=== PATIENT | male | born 1955 | race Caucasian/White ===

== ENCOUNTER 2017-08-01 02:20 | Inpatient (IN) | payer OTHER ==
[~2017-08-01] VITALS: Ht 170.2 cm; Wt 79.7 kg
[~2017-08-01 02:20] MED LIST: ALLO100T30 PO; AMLO10TA4 PO; ASPI-496 PO; ATOR10TA9 PO; LOSA1TAB22 PO; METO-93 PO
[2017-08-01] MEDS ORDERED: ONDANSETRON ODT 4 MG ONE (02:54)
[2017-08-01] MEDS ORDERED: ASPIRIN 81 MG TABLET CHEW ONE (02:54)
[2017-08-01] MEDS ORDERED: ONDANSETRON 2MG/ML, 2ML IVPush ONE (03:00)
[2017-08-01] MEDS ORDERED: ASPIRIN 81 MG TABLET CHEW PO ONE (03:00)
[2017-08-01 03:03] LABS: HEMATOCRIT 46.6 % (39.2-51.8); HEMOGLOBIN 16.1 g/dL (13.7-18.0); WHITE BLOOD COUNT 9.8 x10^3/uL (3.4-10)
[2017-08-01 03:16] LABS: ASPARTATE AMINO TRANSFERASE 33 U/L (15-37); BLOOD UREA NITROGEN 15 mg/dL (7-18)
[2017-08-01 03:20] LABS: IS PT STATUS REG ER OR PRE ER? YES
[2017-08-01] MEDS ORDERED: SODIUM CHLORIDE 0.9% 1,000 ML IV ONE ×2 (03:54→09:40)
[2017-08-01] MEDS ORDERED: MORPHINE SULFATE 4 MG/ML, 1ML ONE (03:57)
[2017-08-01] MEDS ORDERED: NITROGLYCERIN OINT 2%, 1GM TP ONE (04:00)
[2017-08-01] MEDS ORDERED: MORPHINE SULFATE 4 MG/ML, 1ML IVPush PRN ×2 (04:00)
[2017-08-01] MEDS ORDERED: SODIUM CHLORIDE 0.9% 1,000ML IVBOLUS ONE (04:00)
[2017-08-01] MEDS ORDERED: ONDANSETRON 2MG/ML, 2ML IVPush PRN ×2 (04:00→08:00)
[2017-08-01 05:10] VITALS: BP 169/90
[2017-08-01] MEDS ORDERED: ACETAMINOPHEN 325 MG TABLET PO PRN (08:00)
[2017-08-01 08:18] VITALS: BP 150/88
[2017-08-01] MEDS: LOSARTAN 50MG TABLET PO SCH (08:26)
[2017-08-01] MEDS: HYDROCHLOROTHIAZIDE 25 MG TABLET PO SCH (08:26)
[2017-08-01 08:46] LABS: IS PT STATUS REG ER OR PRE ER? NO
[2017-08-01] MEDS ORDERED: METOPROLOL SUCCINATE 50 MG TAB.ER.24H PO SCH (09:00)
[2017-08-01] MEDS: METOPROLOL SUCCINATE 25 MG TAB.ER.24H PO SCH (09:30)
[2017-08-01] MEDS ORDERED: MIDAZOLAM 1 MG/ML, 5ML ONE (14:26)
[2017-08-01] MEDS ORDERED: FENTANYL PF 100 MCG/2ML ONE (14:26)
[2017-08-01] MEDS ORDERED: BIVALIRUDIN 250 MG ONE (14:27)
[2017-08-01] MEDS ORDERED: LIDOCAINE 2%, 20ML ONE (14:27)
[2017-08-01] MEDS ORDERED: HEPARIN 1,000 UNITS/ML, 10ML ONE (14:27)
[2017-08-01] MEDS ORDERED: VERAPAMIL 2.5 MG/ML, 2ML ONE (14:27)
[2017-08-01] MEDS ORDERED: PRASUGREL 10 MG TABLET ONE (15:27)
[2017-08-01] MEDS ORDERED: BIVALIRUDIN 250 MG in DEXTROSE 5% 50 ML IV SCH (15:29)
[2017-08-01] MEDS ORDERED: SODIUM CHLORIDE 0.9% 1,000 ML IV SCH (15:29)
[2017-08-01 16:55] VITALS: BP 166/98
[2017-08-01 19:05] VITALS: BP 155/93
[2017-08-01] MEDS ORDERED: AMLODIPINE 5 MG TABLET PO SCH (21:00)
[2017-08-01] MEDS ORDERED: ATORVASTATIN 10 MG TABLET PO SCH (21:00)
[2017-08-01 21:46] LABS: IS PT STATUS REG ER OR PRE ER? NO
[2017-08-02 01:45] VITALS: BP 133/89
[2017-08-02] MEDS: METOPROLOL SUCCINATE 25 MG TAB.ER.24H PO SCH (05:05)
[2017-08-02 06:05] LABS: BLOOD UREA NITROGEN 13 mg/dL (7-18)
[2017-08-02 07:35] VITALS: BP 134/74
[2017-08-02] MEDS ORDERED: METOPROLOL SUCCINATE 50 MG TAB.ER.24H PO SCH (09:00)
[2017-08-02] MEDS ORDERED: PRASUGREL 10 MG TABLET PO SCH ×2 (09:00)
[2017-08-02] MEDS ORDERED: POTASSIUM CHLORIDE 20 MEQ TAB.ER.PRT PO ONE (09:00)
[2017-08-02] MEDS: LOSARTAN 50MG TABLET PO SCH (09:15)
[2017-08-02] MEDS: HYDROCHLOROTHIAZIDE 25 MG TABLET PO SCH (09:15)
[2017-08-02] MEDS ORDERED: PRAS10TA4 PO (12:10)
[2017-08-02 12:14] VITALS: BP 142/88
[2017-08-02] MEDS ORDERED: ASPIRIN 81 MG TABLET EC PO SCH (21:00)
== END 2017-08-02 13:27 | disposition home or self-care (01) | DRG 247 ==
LOC: ED 04:27 → EDIP 04:30 → 5SO 05:05 → DCLOUNGE 08-02 13:04
PROVIDERS: ADMIT Surgery; ATTEND Surgery
PROC: 027034Z Dilation of Coronary Artery, One Artery with Drug-eluting Intraluminal Device, Percutaneous Approach (ICD-10-PCS; principal; 2017-08-01)
PROC: 4A023N7 Measurement of Cardiac Sampling and Pressure, Left Heart, Percutaneous Approach (ICD-10-PCS; 2017-08-01)
PROC: B2111ZZ Fluoroscopy of Multiple Coronary Arteries using Low Osmolar Contrast (ICD-10-PCS; 2017-08-01)
PROC: B2151ZZ Fluoroscopy of Left Heart using Low Osmolar Contrast (ICD-10-PCS; 2017-08-01)
DX: I21.4 Non-ST elevation (NSTEMI) myocardial infarction (principal); I11.9 Hypertensive heart disease without heart failure; E78.5 Hyperlipidemia, unspecified; I25.10 Atherosclerotic heart disease of native coronary artery without angina pectoris; R63.3 Feeding difficulties; R73.03 Prediabetes; Z79.82 Long term (current) use of aspirin; Z82.49 Family history of ischemic heart disease and other diseases of the circulatory system; Z87.891 Personal history of nicotine dependence
CPT/HCPCS: 36415; 71010; 80048; 80053; 80061; 82040; 83036; 83690; 84484; 85018; 85025; 85610; 93005; 93306; 96361; 96374; 96375; J0583; J1644; J2250; J2405; J3010; J3490; J7030

== ENCOUNTER 2017-12-19 11:02 | Inpatient (IN) | payer OTHER ==
[~2017-12-19] VITALS: Ht 170.2 cm; Wt 73.7 kg
[~2017-12-19 11:02] MED LIST changes: +PRAS10TA4 PO
[2017-12-19 12:01] LABS: CULTURE INDICATED? NO; MICROSCOPIC NOT IND
[2017-12-19 12:10] LABS: BASOPHILS # (AUTO) 0.04 x10^3/uL (0-0.1); BASOPHILS % (AUTO) 1 % (0-1); EOSINOPHILS # (AUTO) 0.09 x10^3/uL (0-0.4); EOSINOPHILS % (AUTO) 1 % (1-7); LYMPHOCYTES # (AUTO) 2.27 x10^3/uL (1-3.4); LYMPHOCYTES % (AUTO) 32 % (22-44); MD NO; MEAN CORPUSCULAR HEMOGLOBIN 31.7 pg (27.5-34.5); MEAN CORPUSCULAR HGB CONC 34.5 g/dL (33.2-36.2); MEAN CORPUSCULAR VOLUME 92.1 fL (81-97); MEAN PLATELET VOLUME 8.6 fL (7.4-10.4); MONOCYTES # (AUTO) 0.67 x10^3/uL (0.2-0.8); MONOCYTES % (AUTO) 9 % (2-9); NEUTROPHILS # (AUTO) 4.05 x10^3/uL (1.8-6.8); NEUTROPHILS % (AUTO) 57 % (42-75); PLATELET COUNT 220 x10^3/uL (130-400); RED BLOOD COUNT 4.95 x10^6/uL (4.38-5.82); RED CELL DISTRIBUTION WIDTH 12.8 % (9.4-14.8)
[2017-12-19 12:21] LABS: ALBUMIN 4.2 g/dL (3.4-5.0); ANION GAP 5 mmol/L (5-15); CALCIUM 8.9 mg/dL (8.5-10.1); CHLORIDE 103 mmol/L (98-107)
[2017-12-19 12:27] LABS: ALANINE AMINOTRANSFERASE 53 U/L (12-78); ALKALINE PHOSPHATASE 75 U/L (45-117); BILIRUBIN,TOTAL 1.2 mg/dL (0.2-1.0); CREATININE 1.04 mg/dL (0.7-1.3); TOTAL PROTEIN 7.8 g/dL (6.4-8.2); TROPONIN I < 0.015 ng/mL (0.000-0.045)
[2017-12-19 13:54] LABS: FREE T4 (FREE THYROXINE) 0.89 ng/dL (0.76-1.46); THYROID STIMULATING HORMONE 2.04 mIU/L (0.358-3.740)
[2017-12-19 15:23] VITALS: BP 168/85
[2017-12-19] MEDS ORDERED: ACETAMINOPHEN 325 MG TABLET PO PRN (16:30)
[2017-12-19] MEDS ORDERED: hydrALAzine 20 MG/ML, 1ML IVPush PRN (16:30)
[2017-12-19] MEDS ORDERED: LACTATED RINGERS 1,000 ML IV SCH (16:30)
[2017-12-19 20:00] VITALS: BP 146/72
[2017-12-19] MEDS: INSULIN LISPRO 100 UNITS/ML, PEN SQ-INSULIN SCH (20:23)
[2017-12-19] MEDS ORDERED: ATORVASTATIN 10 MG TABLET PO SCH (21:00)
[2017-12-19] MEDS ORDERED: AMLODIPINE 5 MG TABLET PO SCH (21:00)
[2017-12-19] MEDS ORDERED: ASPIRIN 81 MG TABLET EC PO SCH (21:00)
[2017-12-20 02:00] VITALS: BP 146/86
[2017-12-20] MEDS: INSULIN LISPRO 100 UNITS/ML, PEN SQ-INSULIN SCH (07:00)
[2017-12-20 07:37] VITALS: BP 127/84
[2017-12-20] MEDS ORDERED: LOSARTAN 50MG TABLET PO SCH (09:00)
[2017-12-20] MEDS ORDERED: PRASUGREL 10 MG TABLET PO SCH (09:00)
[2017-12-20] MEDS ORDERED: HYDROCHLOROTHIAZIDE 25 MG TABLET PO SCH (09:00)
[2017-12-20] MEDS ORDERED: ALLOPURINOL 100 MG TABLET PO SCH (09:00)
== END 2017-12-20 12:25 | disposition home or self-care (01) | DRG 310 ==
LOC: ED 12:16 → EDIP 13:07 → 4WST 15:17 → OBSVTOIN 16:10 → DCLOUNGE 12-20 12:12
PROVIDERS: ADMIT Hospitalist; ATTEND Hospitalist
DX: R00.1 Bradycardia, unspecified (principal); E11.9 Type 2 diabetes mellitus without complications; E78.5 Hyperlipidemia, unspecified; I10 Essential (primary) hypertension; I25.10 Atherosclerotic heart disease of native coronary artery without angina pectoris; I25.2 Old myocardial infarction; Z95.5 Presence of coronary angioplasty implant and graft; T44.7X5A Adverse effect of beta-adrenoreceptor antagonists, initial encounter; Y92.89 Other specified places as the place of occurrence of the external cause
CPT/HCPCS: 36415; 80053; 81003; 82962; 83605; 84439; 84443; 84484; 85025; 87040; 93005; 99285; G0378; J7120

== ENCOUNTER → 2019-06-09 | Outpatient (CLI) | payer MEDICARE, OTHER | END | disposition home or self-care (01) | LOC: CFH 09:43 | PROVIDERS: ATTEND Nurse Practitioner Primary Care | DX: N64.4 Mastodynia (principal); Z80.3 Family history of malignant neoplasm of breast; Z82.49 Family history of ischemic heart disease and other diseases of the circulatory system; Z98.61 Coronary angioplasty status | CPT/HCPCS: 76642; 77066 ==

== ENCOUNTER → 2019-07-02 | Outpatient (CLI) | payer MEDICARE, OTHER ==
[~2019-07-02] MED LIST changes: +REGADENOSON 0.4 MG/5 ML SYRINGE ONE
== END | disposition home or self-care (01) ==
LOC: CFH 06:44
PROVIDERS: ATTEND Internal Medicine Cardiovascular Disease
DX: I08.0 Rheumatic disorders of both mitral and aortic valves (principal); I10 Essential (primary) hypertension; E78.00 Pure hypercholesterolemia, unspecified; E78.5 Hyperlipidemia, unspecified; I25.2 Old myocardial infarction
CPT/HCPCS: 78452; 93017; 93306; A9502; J2785

== ENCOUNTER → 2019-08-27 | Outpatient (CLI) | payer MEDICARE, OTHER ==
[~2019-08-27] MED LIST changes: +MULT-717 PO; -REGADENOSON 0.4 MG/5 ML SYRINGE ONE
[2019-08-27 10:55] LABS: BASOPHILS # (AUTO) 0.07 x10^3/uL (0-0.1); BASOPHILS % (AUTO) 1 % (0-1); EOSINOPHILS # (AUTO) 0.24 x10^3/uL (0-0.4); EOSINOPHILS % (AUTO) 3 % (1-7); LYMPHOCYTES # (AUTO) 2.71 x10^3/uL (1-3.4); LYMPHOCYTES % (AUTO) 28 % (22-44); MD NO; MEAN CORPUSCULAR HEMOGLOBIN 32.4 pg (27.5-34.5); MEAN CORPUSCULAR HGB CONC 34.4 g/dL (33.2-36.2); MEAN CORPUSCULAR VOLUME 94.3 fL (81-97); MEAN PLATELET VOLUME 8.3 fL (7.4-10.4); MONOCYTES # (AUTO) 0.77 x10^3/uL (0.2-0.8); MONOCYTES % (AUTO) 8 % (2-9); NEUTROPHILS # (AUTO) 5.78 x10^3/uL (1.8-6.8); NEUTROPHILS % (AUTO) 60 % (42-75); PLATELET COUNT 256 x10^3/uL (130-400); RED BLOOD COUNT 4.91 x10^6/uL (4.38-5.82); RED CELL DISTRIBUTION WIDTH 12.5 % (9.4-14.8)
[2019-08-27 11:05] LABS: ALANINE AMINOTRANSFERASE 50 U/L (12-78); ANION GAP 8 mmol/L (5-15); CALCIUM 8.8 mg/dL (8.5-10.1); CHLORIDE 104 mmol/L (98-107); CREATININE 1.02 mg/dL (0.7-1.3)
[2019-08-27 11:10] LABS: ALKALINE PHOSPHATASE 83 U/L (45-117); BILIRUBIN,TOTAL 1.1 mg/dL (0.2-1.0); TOTAL PROTEIN 7.6 g/dL (6.4-8.2)
== END | disposition home or self-care (01) ==
LOC: STAR 09:48
PROVIDERS: ATTEND Orthopaedic Surgery
DX: Z01.818 Encounter for other preprocedural examination (principal); M17.11 Unilateral primary osteoarthritis, right knee
CPT/HCPCS: 36415; 80053; 85025; 87081; 87147; 93005

== ENCOUNTER 2019-09-09 10:06 | Observation (INO) | payer MEDICARE, OTHER ==
[~2019-09-09] VITALS: Ht 170.2 cm; Wt 83.7 kg
[~2019-09-09 10:06] MED LIST changes: +EPINEPHRINE 1 MG/ML, 1ML ONE; +KETOROLAC 60 MG/2 ML ONE; +ROPIvacaine/PF 0.2%, 20 ML ONE; +SODIUM CHLORIDE 0.9% 50 ML ONE; +TRANEXAMIC ACID 100 MG/ML, 10ML ONE; +VANCOMYCIN 1,000 MG ONE
[2019-09-09] MEDS ORDERED: ACETAMINOPHEN 500 MG TABLET ONE ×3 (10:29→13:01)
[2019-09-09] MEDS ORDERED: ACET-1600 PO (11:25)
[2019-09-09] MEDS: LACTATED RINGERS 1,000 ML IV SCH ×2 (11:45→17:45)
[2019-09-09] MEDS ORDERED: FENTANYL PF 250 MCG/5ML ONE (12:35)
[2019-09-09] MEDS ORDERED: MIDAZOLAM 1 MG/ML, 2ML ONE (12:35)
[2019-09-09] MEDS ORDERED: HYDROmorphone 2 MG/ML, 1ML IVPush PRN (13:00)
[2019-09-09] MEDS ORDERED: ALBUTEROL SULFATE 2.5 MG/3 ML NPPB PRN (13:00)
[2019-09-09] MEDS ORDERED: hydrALAzine 20 MG/ML, 1ML IV PRN (13:00)
[2019-09-09] MEDS ORDERED: OXYcodone 5 MG/5 ML ORAL.SOL UDC PO PRN ×2 (13:00→16:00)
[2019-09-09] MEDS ORDERED: LABETALOL 5MG/ML, 20ML IV PRN (13:00)
[2019-09-09] MEDS ORDERED: MEPERIDINE/PF 25MG/0.5ML IVPush PRN (13:00)
[2019-09-09] MEDS ORDERED: PROMETHAZINE 25 MG/ML, 1ML IV PRN (13:00)
[2019-09-09] MEDS ORDERED: DIAZEPAM 5 MG/ML, 2ML IVPush PRN (13:00)
[2019-09-09] MEDS ORDERED: ACETAMINOPHEN 650 MG/20.3 ML UDC PO PRN (13:30)
[2019-09-09] MEDS ORDERED: HYDROmorphone 1 MG/ML, 1ML INJ IVPush PRN (13:30)
[2019-09-09] MEDS ORDERED: DIPHENHYDRAMINE 25 MG CAPSULE PO PRN (13:30)
[2019-09-09] MEDS ORDERED: OXYcodone IR 5MG TABLET PO PRN ×2 (13:30)
[2019-09-09] MEDS ORDERED: ONDANSETRON 4 MG TABLET PO PRN (13:30)
[2019-09-09] MEDS ORDERED: DEXAMETHASONE 4 MG/ML, 1ML IVPush SCH (13:30)
[2019-09-09] MEDS ORDERED: SENNA/DOCUSATE TABLET PO PRN (13:30)
[2019-09-09] MEDS ORDERED: HYDROcodone/APAP 10/325 MG TABLET PO PRN (13:30)
[2019-09-09] MEDS ORDERED: CEFAZOLIN 1,000 MG ONE (15:04)
[2019-09-09] MEDS ORDERED: GLYCOPYRROLATE 0.2MG/1ML, 5ML ONE (15:04)
[2019-09-09] MEDS ORDERED: DEXAMETHASONE 4 MG/ML, 1ML ONE (15:04)
[2019-09-09] MEDS ORDERED: ONDANSETRON 2MG/ML, 2ML ONE (15:04)
[2019-09-09] MEDS ORDERED: SUCCINYLCHOLINE 20 MG/ML, 10ML ONE ×2 (15:04)
[2019-09-09] MEDS ORDERED: NEOSTIGMINE 1 MG/ML, 10ML ONE (15:04)
[2019-09-09] MEDS ORDERED: ROCURONIUM 10MG/ML,5ML ONE (15:04)
[2019-09-09] MEDS ORDERED: PROPOFOL 10 MG/ML, 20ML ONE (15:04)
[2019-09-09] MEDS: FENTANYL PF 100 MCG/2ML IV PRN ×2 (15:15→15:33)
[2019-09-09] MEDS ORDERED: OXYcodone 5 MG/5 ML ORAL.SOL UDC ONE ×2 (15:16→15:43)
[2019-09-09] MEDS ORDERED: FENTANYL PF 100 MCG/2ML ONE (15:16)
[2019-09-09] MEDS ORDERED: hydrALAzine 20 MG/ML, 1ML ONE (15:43)
[2019-09-09] MEDS ORDERED: TRANEXAMIC ACID 1,500 MG in SODIUM CHLORIDE 0.9% 100 ML IVPB ONE (16:00)
[2019-09-09 16:25] VITALS: BP 145/82
[2019-09-09] MEDS ORDERED: ASPIRIN 81 MG TABLET EC PO SCH (18:00)
[2019-09-09] MEDS: SODIUM CHLORIDE 0.9% 1,000 ML IV SCH (18:05)
[2019-09-09 19:14] VITALS: BP 149/91
[2019-09-09] MEDS: PREGABALIN 75 MG CAPSULE PO SCH (20:09)
[2019-09-09] MEDS ORDERED: ATORVASTATIN 10 MG TABLET PO SCH (21:00)
[2019-09-09] MEDS ORDERED: AMLODIPINE 10 MG TAB PO SCH (21:00)
[2019-09-09] MEDS: CEFAZOLIN PMX 1GM/50ML 50 ML IVPB SCH (21:40)
[2019-09-10 00:06] VITALS: BP 132/84
[2019-09-10 04:03] VITALS: BP 141/83
[2019-09-10] MEDS: CEFAZOLIN PMX 1GM/50ML 50 ML IVPB SCH (05:40)
[2019-09-10] MEDS: SODIUM CHLORIDE 0.9% 1,000 ML IV SCH (05:47)
[2019-09-10 07:32] VITALS: BP 140/80
[2019-09-10] MEDS: PREGABALIN 75 MG CAPSULE PO SCH (08:57)
[2019-09-10] MEDS ORDERED: LOSARTAN 100 MG TAB PO SCH (09:00)
[2019-09-10] MEDS ORDERED: HYDROCHLOROTHIAZIDE 12.5 MG CAPSULE PO SCH (09:00)
[2019-09-10] MEDS ORDERED: MULTIVITAMINS/MINERALS TABLET PO SCH (09:00)
[2019-09-10] MEDS ORDERED: ALLOPURINOL 100 MG TABLET PO SCH (09:00)
[2019-09-10] MEDS ORDERED: PRASUGREL 10 MG TABLET PO SCH (09:00)
[2019-09-10 11:30] VITALS: BP 138/73
== END 2019-09-10 12:02 | disposition home or self-care (01) ==
LOC: OUT 10:06 → ORIP 13:03 → 4NE 16:26 → DCLOUNGE 09-10 11:52
PROVIDERS: ADMIT Orthopaedic Surgery; ATTEND Orthopaedic Surgery
DX: M17.11 Unilateral primary osteoarthritis, right knee (principal); I25.10 Atherosclerotic heart disease of native coronary artery without angina pectoris; I10 Essential (primary) hypertension; E78.5 Hyperlipidemia, unspecified; E11.9 Type 2 diabetes mellitus without complications; Z87.891 Personal history of nicotine dependence; Z98.61 Coronary angioplasty status
CPT/HCPCS: 27447; 36415; 73560; 85018; 96365; 96366; 97161; C1713; C1776; G0378; J0171; J0360; J0690; J1100; J1885; J2250; J2405; J2704; J2795; J3010; J3370; J7030; J7120; J2710; J0330

== ENCOUNTER 2020-08-29 12:27 | Emergency (ER) | payer MEDICARE, OTHER ==
[~2020-08-29] VITALS: Ht 170.2 cm; Wt 77.1 kg
[~2020-08-29 12:27] MED LIST changes: +ACET-1600 PO; -EPINEPHRINE 1 MG/ML, 1ML ONE; -KETOROLAC 60 MG/2 ML ONE; -ROPIvacaine/PF 0.2%, 20 ML ONE; -SODIUM CHLORIDE 0.9% 50 ML ONE; -TRANEXAMIC ACID 100 MG/ML, 10ML ONE; -VANCOMYCIN 1,000 MG ONE
--- NOTE | 2020-08-29 13:41 | NUR ---
construction coordinator note: Pt to room from lobby.
--- NOTE | 2020-08-29 14:04 | NUR ---
PT SITTING UP IN BED, ERMD IN TO ASSESS PT. NAD NOTED AT THIS TIME. PT CHANGED INTO GOWN AND BLANKET GIVEN. AT BEDSIDE. SIDE RAIL UP, CALL LIGHT IN REACH.
[2020-08-29 14:26] LABS: TROPONIN I < 0.015 ng/mL (0.000-0.045)
[2020-08-29 15:00] VITALS: BP 140/81
--- NOTE | 2020-08-29 15:08 | NUR ---
AWAITING CHART FROM PROVIDER. PT DRESSING. AT BEDSIDE. NAD NOTED.
--- NOTE | 2020-08-29 15:26 | NUR ---
BREAK RN: Patient/Caregiver given discharge instructions and they have confirmed that they understand the instructions. Patient ambulatory with steady gait.
== END 2020-08-29 15:27 | disposition home or self-care (01) ==
LOC: ED 14:19
DX: S46.812A Strain of other muscles, fascia and tendons at shoulder and upper arm level, left arm, initial encounter (principal); R07.89 Other chest pain; I25.2 Old myocardial infarction; I10 Essential (primary) hypertension; E78.5 Hyperlipidemia, unspecified; I25.10 Atherosclerotic heart disease of native coronary artery without angina pectoris; Z87.891 Personal history of nicotine dependence; X58.XXXA Exposure to other specified factors, initial encounter; Y93.89 Activity, other specified; Y92.89 Other specified places as the place of occurrence of the external cause; Y99.8 Other external cause status
CPT/HCPCS: 36415; 71045; 84484; 93005; 99285